=== PATIENT | female | born 1965 | race Caucasian/White ===

== ENCOUNTER → 2017-01-21 | Outpatient (CLI) | payer OTHER ==
[~2017-01-21] MED LIST: CHOL500015 PO; CYAN1TAB29 PO; LEVO125T PO; OMEG1CAP6 PO; VITA100035 PO; iron PO
[2017-01-21 15:29] LABS: HEMATOCRIT 42.1 % (34.6-47.8); HEMOGLOBIN 14.1 g/dL (11.7-16.4); WHITE BLOOD COUNT 7.9 x10^3/uL (3.4-10)
[2017-01-21 15:38] LABS: BLOOD UREA NITROGEN 10 mg/dL (7-18)
== END | disposition home or self-care (01) ==
LOC: STAR 14:40
PROVIDERS: ATTEND Obstetrics & Gynecology Female Pelvic Medicine and Reconstructive Surgery
DX: Z01.811 Encounter for preprocedural respiratory examination (principal); Z88.0 Allergy status to penicillin; Z88.8 Allergy status to other drugs, medicaments and biological substances
CPT/HCPCS: 36415; 71020; 80048; 85025; 93005

== ENCOUNTER 2017-02-03 10:02 | Day surgery (SDC) | payer OTHER ==
[~2017-02-03] VITALS: Ht 172.7 cm; Wt 87.8 kg
[~2017-02-03 10:02] MED LIST changes: +FENTANYL PF 100 MCG/2ML ONE; +MIDAZOLAM 1 MG/ML, 2ML ONE
[2017-02-03] MEDS ORDERED: CEFAZOLIN 1,000 MG ONE (10:16)
[2017-02-03] MEDS ORDERED: PROPOFOL 10 MG/ML, 20ML ONE (10:16)
[2017-02-03] MEDS ORDERED: DEXAMETHASONE 4 MG/ML, 1ML ONE (10:16)
[2017-02-03] MEDS ORDERED: ONDANSETRON 2MG/ML, 2ML ONE (10:16)
[2017-02-03] MEDS ORDERED: LIDOCAINE 1%, 2ML ONE (10:22)
[2017-02-03 10:25] VITALS: BP 132/79
[2017-02-03] MEDS ORDERED: TRIA10.8 NAS (10:28)
[2017-02-03] MEDS ORDERED: LACTATED RINGERS 1,000 ML IV SCH ×2 (10:28→12:47)
[2017-02-03] MEDS ORDERED: LIDOCAINE 1%, 2ML SQ PRN (10:30)
[2017-02-03] MEDS ORDERED: KETOROLAC 30 MG/1 ML ONE (12:28)
[2017-02-03] MEDS ORDERED: MIDAZOLAM 1 MG/ML, 2ML IV PRN (13:00)
[2017-02-03] MEDS ORDERED: MEPERIDINE/PF 25MG/0.5ML IVPush PRN (13:00)
[2017-02-03] MEDS ORDERED: hydrALAzine 20 MG/ML, 1ML IV PRN (13:00)
[2017-02-03] MEDS ORDERED: OXYcodone 5 MG/5 ML ORAL.SOL UDC PO PRN (13:00)
[2017-02-03] MEDS ORDERED: HYDROcodone/APAP 5/325 TABLET PO PRN (13:00)
[2017-02-03] MEDS ORDERED: LABETALOL 5MG/ML, 20ML IV PRN (13:00)
[2017-02-03] MEDS ORDERED: ALBUTEROL/IPRATROPIUM 2.5MG/0.5MG, 3 ML NPPB PRN (13:00)
[2017-02-03] MEDS ORDERED: ACETAMINOPHEN 325 MG TABLET PO PRN (13:00)
[2017-02-03] MEDS ORDERED: PROMETHAZINE 25 MG SUPP PR ONE (13:00)
[2017-02-03] MEDS ORDERED: HYDROmorphone 1 MG/ML, 1ML IV PRN (13:00)
[2017-02-03] MEDS ORDERED: FENTANYL PF 100 MCG/2ML IV PRN (13:00)
[2017-02-03] MEDS ORDERED: DIAZEPAM 5 MG/ML, 2ML IVPush PRN (13:00)
[2017-02-03] MEDS ORDERED: IBUPROFEN 600 MG TABLET PO PRN (13:00)
[2017-02-03] MEDS ORDERED: ONDANSETRON 2MG/ML, 2ML IVPush PRN ×2 (13:00)
[2017-02-03] MEDS ORDERED: LORazepam 2 MG/ML, 1ML IVPush PRN (13:00)
[2017-02-03] MEDS ORDERED: PROMETHAZINE 25 MG/ML, 1ML IV PRN (13:00)
[2017-02-03] MEDS ORDERED: EPINEPHRINE 1 MG/ML, 1ML ONE (15:33)
[2017-02-03] MEDS ORDERED: BUPIVACAINE/PF 0.25% ONE (15:33)
== END 2017-02-03 15:35 ==
LOC: OUT 10:02
PROVIDERS: ATTEND Obstetrics & Gynecology Female Pelvic Medicine and Reconstructive Surgery
DX: N92.0 Excessive and frequent menstruation with regular cycle (principal); D25.9 Leiomyoma of uterus, unspecified; E07.9 Disorder of thyroid, unspecified; J45.909 Unspecified asthma, uncomplicated; N84.0 Polyp of corpus uteri; G43.909 Migraine, unspecified, not intractable, without status migrainosus; Z88.0 Allergy status to penicillin; Z88.8 Allergy status to other drugs, medicaments and biological substances
CPT/HCPCS: 58558; 88305; J0171; J0690; J1100; J1885; J2250; J2405; J2704; J3010; J3490; J7120

== ENCOUNTER 2018-08-13 09:52 | Outpatient (CLI) | payer OTHER ==
[~2018-08-13 09:52] MED LIST changes: -FENTANYL PF 100 MCG/2ML ONE; -MIDAZOLAM 1 MG/ML, 2ML ONE; +TRIA10.8 NAS
== END 2018-08-13 23:59 | disposition home or self-care (01) ==
LOC: CFH 09:52
PROVIDERS: ATTEND Family Medicine
DX: Z12.31 Encounter for screening mammogram for malignant neoplasm of breast (principal)
CPT/HCPCS: 77063; 77067